=== PATIENT | female | born 2000 | race Caucasian/White ===

== ENCOUNTER 2019-08-27 20:50 | Emergency (ER) | payer BC ==
[2019-08-27 22:40] LABS: Urine Appearance Cloudy; Urine Bilirubin Negative (Negative); Urine Blood Negative (Negative); Urine Color Yellow; Urine Glucose Negative (Negative); Urine Ketones Negative (Negative); Urine Nitrite Negative (Negative); Urine Protein Negative (Negative); Urine Specific Gravity 1.025 (1.010-1.030); Urine Urobilinogen Negative (Negative)
[2019-08-27 23:31] LABS: HIV 4th Generation Nonreactive (Nonreactive)
--- NOTE | 2019-08-27 23:50 | ED ---
GI/ HPI - HPI Summary HPI Summary: Patient complains of new onset vaginal sores 2 days. History of unprotected sex 10 days ago. Patient also states she shaved her vagina and labia 2 days ago just before symptoms started. Denies pain, fever, vaginal discharge, vaginal bleeding, pain with intercourse, urine symptoms. Denies any other symptoms, pain or injury. Medical history is none. - History of Current Complaint Chief Complaint: EDGeneral Time Seen by Provider: 08/27/19 22:16 Stated Complaint: POSSIBLE STD PER PT Hx Obtained From: Patient Onset/Duration: Started Days Ago Timing: Constant Current Severity: None Pain Intensity: 0 Additional Location for Females: Vulva Associated Signs and Symptoms: Positive: Negative - Allergy/Home Medications Allergies/Adverse Reactions: Allergies Allergy/AdvReac Type Severity Reaction Status Date / Time No Known Allergies Allergy Verified 08/27/19 21:04 Home Medications: Home Medications Norgestimate-Ethinyl Estradiol [Jfs-Il-Vasvch 0.18/0.215/0.25 mg-25 Mcg] 1 tab PO DAILY 08/27/19 [History Confirmed 08/27/19] PMH/Surg Hx/FS Hx/Imm Hx Endocrine/Hematology History: Denies: Hx Anticoagulant Therapy Cardiovascular History: Denies: Hx Pacemaker/ICD History: Denies: Hx Dialysis Sensory History: Denies: Hx Eye Prosthesis Opthamlomology History: Denies: Hx Legally Blind EENT History: Denies: Hx Deafness Infectious Disease History: No Infectious Disease History: Denies: Traveled Outside the [place] in Last 30 Days - Family History Known Family History: Positive: Non-Contributory - Social History Alcohol Use: Weekly Alcohol Amount: 1x/week Substance Use Type: Reports: None Smoking Status (MU): Never Smoked Tobacco Review of Systems Constitutional: Negative Eyes: Negative ENT: Negative Cardiovascular: Negative Respiratory: Negative Gastrointestinal: Negative Genitourinary: Negative Musculoskeletal: Negative Skin: Other Neurological: Negative Psychological: Normal All Other Systems Reviewed And Are Negative: Yes Physical Exam - Summary Physical Exam Summary: Individual circular lesions to bilateral labia. Unclear if vesicular or trauma from shaving. Lesions do not appear to be fluid-filled. Nonpainful to palpation. Pelvic exam otherwise unremarkable. Triage Information Reviewed: Yes Vital Signs On Initial Exam: Initial Vitals Temp Pulse Resp BP Pulse Ox 98 F 83 18 118/96 98 08/27/19 21:04 08/27/19 21:04 08/27/19 21:04 08/27/19 21:04 08/27/19 21:04 Vital Signs Reviewed: Yes Appearance: Positive: Well-Appearing Skin: Positive: Warm Head/Face: Positive: Normal Head/Face Inspection Eyes: Positive: Normal ENT: Positive: Normal ENT inspection Neck: Positive: Supple Respiratory/Lung Sounds: Positive: Clear to Auscultation Cardiovascular: Positive: Normal Abdomen Description: Positive: Nontender Pelvic Exam: Positive: Speculum Exam Normal, Bimanual Exam Normal, No Cerv. Motion Tender, Lesions Musculoskeletal: Positive: Normal Neurological: Positive: Normal Psychiatric: Positive: Normal AVPU Assessment: Alert - Jacobo Coma Scale Best Eye Response: 4 - Spontaneous Best Motor Response: 6 - Obeys Commands Best Verbal Response: 5 - Oriented Coma Scale Total: 15 Procedures - Sedation Patient Received Moderate/Deep Sedation with Procedure: No Diagnostics - Vital Signs Vital Signs Temp Pulse Resp BP Pulse Ox 08/27/19 21:04 98 F 83 18 118/96 98 - Laboratory Lab Results: Lab Results 08/27/19 08/27/19 08/27/19 Range/Units 22:25 22:32 23:07 Urine Color Yellow Urine Appearance Cloudy Urine pH 6.0 (5-9) Ur Specific [place] 1.025 (1.010-1.030) Urine Protein Negative (Negative) Urine Ketones Negative (Negative) Urine Blood Negative (Negative) Urine Nitrate Negative (Negative) Urine Bilirubin Negative (Negative) Urine Urobilinogen Negative (Negative) Ur Leukocyte Esterase Negative (Negative) Urine Glucose Negative (Negative) C.trachomatis (Amp Det) Pending HIV 1&2 Ab/P24 Ag 4thGn Nonreactive (Nonreactive) N.gonorrhoeae (Amp Det) Pending Lab Statement: Any lab studies that have been ordered have been reviewed, and results considered in the medical decision making process. GIGU Course/Dx - Course Course Of Treatment: Patient complains of new onset vaginal sores 2 days. History of unprotected sex 10 days ago. Patient also states she shaved her vagina and labia 2 days ago just before symptoms started. Denies pain, fever, vaginal discharge, vaginal bleeding, pain with intercourse, urine symptoms. Denies any other symptoms, pain or injury. Medical history is none. Vital signs within normal limits. Pelvic swabs pending. Due to lack of pain from lesions herpes seems unlikely. More likely trauma from shaving. Culture of lesions pending. - Diagnoses Provider Diagnoses: Vaginal sore Discharge ED - Sign-Out/Discharge Documenting (check all that apply): Patient Departure - Discharge Plan Condition: Stable Disposition: HOME Patient Education Materials: Genital Herpes Simplex (ED), Acute Wound Care (ED) Referrals: No Primary Care Phys,NOPCP [Primary Care Provider] - Additional Instructions: Keep sores on vagina clean and dry. If any of your cultures are positive you will be called and treatment will be sent to the pharmacy for you. Follow-up with primary care. - Billing Disposition and Condition Condition: STABLE Disposition: Home
[2019-08-28] VITALS: BP 125/84
[2019-08-28 13:22] LABS: Chlamydia trachomatis NAA Negative (Negative); Neisseria gonorrhoeae (GC) NAA Negative (Negative)
[2019-08-29 20:03] LABS: Herpes Source VAGINA
--- NOTE | 2019-08-30 11:59 | ED ---
Imaging and Labs Follow Up Follow Up Type: Labs/Cultures Labs/Culture Result: Positive HSV1. Patient Communication/Plan: Spoke with pt. today at 1155. Pt. notes she went to [facility] clinic and was started on Valcyclovir. Discussed transmission and precautions. Pt. mukesh herzog with [facility] clinic. Provider Diagnoses: Vaginal sore
== END 2019-08-27 23:59 | disposition home or self-care (01) ==
LOC: ED 20:50
DX: N76.5 Ulceration of vagina (principal)
CPT/HCPCS: 36415; 81003; 87389; 87480; 87491; 87510; 87529; 87591; 87661; 99282